=== PATIENT | female | born 1990 | race Caucasian/White ===

== ENCOUNTER 2016-07-25 18:29 | Emergency (ER) | payer MEDICAID ==
[~2016-07-25] VITALS: Ht 172.7 cm; Wt 88.9 kg
[2016-07-25 18:42] VITALS: BP 111/69
== END 2016-07-25 19:25 | disposition home or self-care (01) ==
LOC: ED 19:18
DX: K08.89 Other specified disorders of teeth and supporting structures (principal); J45.909 Unspecified asthma, uncomplicated
CPT/HCPCS: 99283

== ENCOUNTER 2017-01-29 20:12 | Emergency (ER) | payer MEDICAID ==
[~2017-01-29] VITALS: Ht 172.7 cm; Wt 88.8 kg
[2017-01-29 20:45] VITALS: BP 129/60
== END 2017-01-29 21:59 | disposition home or self-care (01) ==
LOC: ED 21:00
DX: K08.89 Other specified disorders of teeth and supporting structures (principal); J45.909 Unspecified asthma, uncomplicated
CPT/HCPCS: 99283

== ENCOUNTER 2017-04-28 10:44 | Emergency (ER) | payer MEDICAID ==
[~2017-04-28] VITALS: Ht 172.7 cm; Wt 87.3 kg
[2017-04-28 11:09] VITALS: BP 124/74
== END 2017-04-28 12:19 | disposition left against medical advice (07) ==
LOC: ED 12:13
DX: Z53.21 Procedure and treatment not carried out due to patient leaving prior to being seen by health care provider (principal)

== ENCOUNTER 2017-04-29 07:39 | Emergency (ER) | payer MEDICAID ==
[~2017-04-29] VITALS: Ht 172.7 cm; Wt 86.7 kg
[2017-04-29 07:41] VITALS: BP 109/71
[2017-04-29] MEDS ORDERED: KETOROLAC 30 MG/1 ML ONE ×2 (08:44→08:46)
[2017-04-29] MEDS ORDERED: KETOROLAC 30 MG/1 ML IM ONE (09:00)
== END 2017-04-29 10:49 | disposition home or self-care (01) ==
LOC: ED 09:29
DX: M25.461 Effusion, right knee (principal)
CPT/HCPCS: 29505; 73564; 96372; 99284; J1885